=== PATIENT | female | born 2000 | race Caucasian/White ===

== ENCOUNTER 2020-06-19 12:24 | Emergency (ER) | payer SELFPAY ==
[2020-06-19 12:25] VITALS: BP 129/79; PULSE 64; RESP 16; O2SAT 97
[2020-06-19 12:26] VITALS: BP 133/77; PULSE 72; RESP 14; TEMP 35.9; O2SAT 99; BMI 36.6
--- NOTE | 2020-06-19 13:52 | EKG12_ITS ---
Test Reason : Blood Pressure : / mmHG Vent. Rate : 058 BPM Atrial Rate : 058 BPM P-R Int : 126 ms QRS Dur : 082 ms QT Int : 404 ms P-R-T Axes : -09 032 022 degrees QTc Int : 396 ms Sinus bradycardia with sinus arrhythmia Otherwise normal ECG Confirmed by ALEKSANDER ELIZONDO, GEOFFREY ([id number]), news assignment editor BRIONNA MARTÍNEZ ([id number]) on 06/22/2020 12:58:03 PM Referred By: ABIOLA/NAHOMY Confirmed By:GEOFFREY ARMIJO MD
[2020-06-19 14:35] VITALS: BP 132/69; BP 143/74; PULSE 62; PULSE 69
[2020-06-19 14:35] LABS: Absolute Lymphocyte Count 3.57 X10^3/uL (0.83-4.51); Absolute Neutrophil Count 5.8 X10^3/uL (2.0-7.7); Basophil# 0.06 X10^3/uL; Basophil% 0.6 % (0-1); Eosinophil# 0.18 X10^3/uL; Eosinophils% 1.8 % (0-5); Hematocrit 44.3 % (37-47); Hemoglobin 14.3 g/dL (12.0-15.0); Lymphocyte # 3.57 X10^3/ul (0.83-4.51); Lymphocyte % 34.9 % (19-41); Mean Corp Hgb Conc 32.3 g/dL (32-36); Mean Corpuscular Hgb 29.7 pg (27.0-32.0); Mean Corpuscular Volume 91.9 fL (81-99); Monocyte# 0.61 X10^3/uL; NRBC Flagged by Analyzer 0 % (0-5); Neutrophil # 5.79 X10^3/uL (2.7-7.7); Neutrophil % 56.4 % (47-70); Platelet Count 345 K/mm3 (150-450); RBC Distribution Width CV 11.9 % (11.6-14.6); RBC Distribution Width SD 40.1 fl (35.1-43.9); Red Blood Count 4.82 M/mm3 (4.2-5.4); White Blood Count 10.2 K/mm3 (4.4-11.0)
[2020-06-19 14:48] LABS: Mucous, Urine 0 SEEN /hpf (<or=2+); Red Blood Cells-Urine 0 SEEN /hpf (0-5); Squamous Epithelial Cells - UA 0 SEEN /hpf (5-10); White Blood Cells 0 SEEN /hpf (0-5)
[2020-06-19 14:50] VITALS: BP 137/87; PULSE 79; RESP 16; O2SAT 97
[2020-06-19 14:50] LABS: Color, Urine Yellow (Yellow); Glucose, Dipstick Normal (Normal); Ketone-Dipstick Negative (Negative); Leukocyte Esterase-Dipstick Negative /ul (Negative); Nitrite-Dipstick Negative (Negative); Occult Blood-Urine 10 /ul (Negative); Protein-Dipstick Negative (Negative); Urine Bilirubin Dipstick Negative (Negative); Urine Clarity Sl. Cloudy (Clear); Urine Urobilinogen Normal (Normal); Urine pH 6.5 (5.0 - 8.0)
[2020-06-19 14:54] LABS: Anion Gap 5 (5-15); BUN 14 mg/dL (7-18); Calcium,Total 9.3 mg/dL (8.5-10.1); Chloride 106 mmol/L (98-107); EST Glomerular Filtration Rate 112 mL/min (>60); Est Glom Filt Rate - Afr Amer 136 mL/min (>60); Estimated Creatinine Clearance 101.39 ml/min; Glucose 84 mg/dL (74-106); Potassium 4.1 mmol/L (3.5-5.1); Sodium Level 140 mmol/L (136-145)
[2020-06-19 14:55] LABS: Bacteria RARE /hpf (None Seen)
[2020-06-19 15:01] LABS: Internal QC Validated? YES +Cl - CLEAR BKGD; Pregnancy, Urine Negative Negative
[2020-06-19 16:11] VITALS: BP 119/72; PULSE 74; RESP 16; O2SAT 100
--- NOTE | 2020-06-19 16:13 | EX.ED.DYSGE1 ---
HPI History of Present Illness Chief Complaint: Hypotension Informant: patient and parent Narrative Narrative: Patient is a 19-year-old female denies any past medical history presenting with dizzy spells and lightheadedness. Patient states she has been having episodes of this for years but is been worse for the past week. Patient states that sometimes it can happen at rest and sometimes with movement. It can last anywhere between minutes and hours. Yesterday her symptoms felt better but then they seem worse again today so she came to the emergency room to be evaluated. She states she feels weak and everything feels heavy but she also feels weightless. She notes has had trouble concentrating. She denies any ringing of her ears. She denies any spinning sensation. She does have some mild fullness in her ears and seasonal allergies. Patient states she is previously been evaluated extensively but it was as a young teenager and has not seen a doctor in some time. She is planning to follow-up at the same office her father goes to. No other complaints at this time. PFSH PFS Medical History Non-smoker no medical history Home Medications No Known/Unobtainable [No Known Home Medications] 04/18/13 [History Last Taken Unknown] Allergy/AdvReac Type Severity Reaction Status Date / Time No Known Allergies Allergy Verified 06/19/20 12:26 no significant family history no surgical history Social History Smoking Status: Never smoker [facility] ED Constitutional Constitutional ED: Reports other Details: Lightheaded ; Denies chills, fever(s) or malaise Eyes Eyes: Denies blurry vision, change in vision, diplopia or loss of vision ENT ENT ED: Denies ear pain, rhinorrhea or sore throat Cardiovascular Cardiovascular: Denies chest pain or dizziness Respiratory/Chest Respiratory/Chest: Denies cough or dyspnea Gastrointestinal Gastrointestinal: Denies nausea or vomiting Genitourinary Genitourinary ED: Denies dysuria or hematuria Musculoskeletal Musculoskeletal: Denies arthralgias or myalgias Integumentary Denies rash or wounds Neurologic Neurologic: Denies focal weakness or headache(s) Psychiatric Psychiatric: Denies anxiety or behavioral changes EXAM Physical Exam Const Vital Signs: 06/19/20 12:25 06/19/20 12:26 06/19/20 13:15 Temperature 96.6 F L Temperature Source Oral Pulse Rate 64 72 Pulse Rate [Lying] Pulse Rate [Sitting] Respiratory Rate 16 14 Respiratory Pattern Normal Blood Pressure 129/79 H 133/77 H Blood Pressure [Lying] Blood Pressure [Sitting] Blood Pressure Mean 95 95 Blood Pressure Mean [Lying] Blood Pressure Mean [Sitting] Pulse Ox 97 99 Oxygen Delivery Method Room Air Room Air 06/19/20 14:35 06/19/20 14:50 06/19/20 16:11 Temperature Temperature Source Pulse Rate 79 74 Pulse Rate [Lying] 62 Pulse Rate [Sitting] 69 Respiratory Rate 16 16 Respiratory Pattern Blood Pressure 137/87 H 119/72 Blood Pressure [Lying] 143/74 H Blood Pressure [Sitting] 132/69 H Blood Pressure Mean 103 87 Blood Pressure Mean [Lying] 97 Blood Pressure Mean [Sitting] 90 Pulse Ox 97 100 Oxygen Delivery Method Room Air Room Air Positive well nourished, well developed and no apparent distress General Appearance ED: well developed HEENT Reports normocephalic, TM's clear and moist mucous membranes HEENT Narrative: Small amount of fluid noted behind the left hepatic membrane, boggy nasal mucosa atraumatic Nose: no nasal discharge General Ear: hearing grossly impaired External Ear: external ears normal Tympanic Membrane ED: Yes TM's clear Mouth ED: Yes moist mucous membranes abnormal Mouth: moist mucous membranes abnormal Eyes PERRL and EOMs intact bilaterally Neck full ROM, supple, no meningeal signs and no JVD Chest Wall inspection of chest normal Resp normal respiratory effort, normal air movement and clear to auscultation bilaterally Cardio regular rate and regular rhythm GI normal to inspection, nondistended, normoactive bowel sounds Extremity normal to inspection and full ROM Neuro oriented x3 and no focal motor deficits Sensorium / Orientation: alert Psych mental status grossly normal and thought process normal Skin no rashes or lesions noted and no wounds MDM MDM MDM Narrative Medical decision making narrative: Patient evaluated for ongoing episodes of dizziness/lightheadedness. She appears nontoxic in no acute distress. She was concerned that she had low blood pressure at home. Her diastolic was as in the 50s which concerned her. Patient currently has normal blood pressure. Orthostatics normal. She does not have a low diastolic blood pressure. She is well-appearing. She is low risk for PE and is PE RC negative. I do not think a D-dimer or further CTAs indicated. EKG is normal. Troponin is normal. Patient not having electrolyte abnormalities or signs of infection or anemia to explain her presentation. Patient does have some physical exam findings consistent with some seasonal allergies. She notes she does have some. She is instructed to start taking a daily Zyrtec as this might help with some of her lightheadedness. She is instructed to follow-up with her primary care doctor for further evaluation and possibly Holter monitor. Patient is counseled on signs and symptoms requiring return to the emergency room. Patient verbalizes agreement and understand this plan. Patient discharged home in stable and improved condition. Lab Data Attestation: I reviewed the patient's lab results. Labs: Laboratory Results - last 24 hr 06/19/20 06/19/20 06/19/20 13:34 14:34 14:40 WBC 10.2 RBC 4.82 Hgb 14.3 Hct 44.3 MCV 91.9 MCH 29.7 MCHC 32.3 RDW Std Deviation 40.1 RDW Coeff of [place] 11.9 Plt Count 345 MPV 11.0 Immature Gran % (Auto) 0.300 Neut % (Auto) 56.4 Lymph % (Auto) 34.9 [place] % (Auto) 6.0 Eos % (Auto) 1.8 Baso % (Auto) 0.6 Absolute Neuts (auto) 5.8 Absolute Lymphs (auto) 3.57 Nucleated RBC % 0 Sodium 140 Potassium 4.1 Chloride 106 Carbon Dioxide 29.0 Anion Gap 5 BUN 14 Creatinine 0.70 Estim Creat Clear Calc 101.39 Est GFR (MDRD) Af Amer 136 Est GFR (MDRD) Non-Af 112 BUN/Creatinine Ratio 20.0 Glucose 84 Calcium 9.3 Troponin I < 0.015 Urine Color Yellow Urine Clarity Sl. Cloudy Urine pH 6.5 Ur Specific [place] 1.020 Urine Protein Negative Urine Glucose (UA) Normal Urine Ketones Negative Urine Occult Blood 10 H Urine Nitrite Negative Urine Bilirubin Negative Urine Urobilinogen Normal Ur Leukocyte Esterase Negative Urine RBC 0 SEEN Urine WBC 0 SEEN Ur Squamous Epith Cells 0 SEEN Urine Bacteria RARE Urine Mucus 0 SEEN Urine Test 06/19/20 14:45 WBC RBC Hgb Hct MCV MCH MCHC RDW Std Deviation RDW Coeff of [place] Plt Count MPV Immature Gran % (Auto) Neut % (Auto) Lymph % (Auto) [place] % (Auto) Eos % (Auto) Baso % (Auto) Absolute Neuts (auto) Absolute Lymphs (auto) Nucleated RBC % Sodium Potassium Chloride Carbon Dioxide Anion Gap BUN Creatinine Estim Creat Clear Calc Est GFR (MDRD) Af Amer Est GFR (MDRD) Non-Af BUN/Creatinine Ratio Glucose Calcium Troponin I Urine Color Urine Clarity Urine pH Ur Specific [place] Urine Protein Urine Glucose (UA) Urine Ketones Urine Occult Blood Urine Nitrite Urine Bilirubin Urine Urobilinogen Ur Leukocyte Esterase Urine RBC Urine WBC Ur Squamous Epith Cells Urine Bacteria Urine Mucus Urine Test Negative Rhythm Strip Rhythm Strip: Sinus Rhythm Rate: 58 Ectopy: None EKG Initial EKG: Attestation: I personally reviewed and interpreted this EKG as follows: Interpretation: Sinus Rhythm Comments: Normal sinus rhythm at a rate of 58 Normal axis Normal intervals Normal ST segments Discharge Plan Triage Chief Complaint: Hypotension ED Provider: Julia Childs Dx/Rx/DC Orders Clinical Impression: Light-headed Instructions: ED Weakness (Uncertain Cause) Prescriptions: No Action No Known Home Medications RF: 0 Primary Care Provider: Amelie Huffman Referrals: Amelie Huffman MD [Primary Care Provider] - Activity Restrictions/Additional Instructions: Your work-up is normal today. Please follow-up with your primary care doctor. You may try taking a daily Zyrtec to see if it helps with your symptoms. Disposition Disposition: Home, self care
== END 2020-06-19 16:44 | disposition home or self-care (01) ==
PROVIDERS: Emergency Provider Emergency Medicine; PCP Obstetrics & Gynecology
DX: R42 Dizziness and giddiness (principal)
CPT/HCPCS: 80048; 81001; 81025; 84484; 85025; 93005; 99285; A4216

== ENCOUNTER → 2022-01-27 | Outpatient (CLI) | payer OTHER, SELFPAY ==
--- NOTE | 2022-01-27 18:27 | US_ITS ---
STUDY: ULTRASOUND OF THE FEMALE PELVIS - COMPLETE REASON FOR EXAM: Female, 21 years old. LLQ PAIN LMP: Unknown. TECHNIQUE: Transabdominal TECHNICAL QUALITY: Adequate. COMPARISON: None. FINDINGS: The uterus is anteverted and is in a midline position. The uterus measures 6.1 x 5.1 x 4.3 cm. Normal uterine cervix. The endometrium measures 10 mm in thickness, and is hyperechoic with split appearance. There is no demonstrated endometrial mass. There is no demonstrated myometrial mass. I.U.D. - The patient does not have an I.U.D. The right ovary is non-visualized. The left ovary is visualized. The left ovary measures 3.8 x 3.2 x 3.0 cm. There is no left ovarian cyst or ovarian mass. There is no visualized left adnexal mass or complex lesion. There is normal arterial and normal venous vascularity. There is no fluid in the cul-de-sac. The pre void volume of the bladder was 5 ml. US/Pelvic (Non ) IMPRESSION: Normal left ovary. Nonvisualized right ovary. Spondylitic of the endometrium and possible arcuate or septate uterus. Electronically Signed: Teddy Juan MD at 19:58 EST ,
== END | disposition home or self-care (01) ==
LOC: US 18:24
PROVIDERS: Referring Provider Family Medicine; Visit Provider Family Medicine
DX: R10.32 Left lower quadrant pain (principal); M47.9 Spondylosis, unspecified
CPT/HCPCS: 76856; 93976

== ENCOUNTER → 2023-08-22 | Outpatient (CLI) | payer OTHER, SELFPAY ==
[2023-08-22 12:47] LABS: Absolute Lymphocyte Count 2.55 X10^3/uL (0.83-4.51); Absolute Neutrophil Count 4.1 X10^3/uL (2.0-7.7); Basophil# 0.02 X10^3/uL; Basophil% 0.3 % (0-1); Eosinophil# 0.09 X10^3/uL; Eosinophils% 1.3 % (0-5); Hemoglobin 14.1 g/dL (12.0-15.0); Lymphocyte # 2.55 X10^3/ul (0.83-4.51); Lymphocyte % 35.5 % (19-41); Mean Corpuscular Hgb 28.8 pg (27.0-32.0); Mean Platelet Vol. 11.1 fl (6.2-12.0); Monocyte# 0.38 X10^3/uL; Monocyte% 5.3 % (0-10); NRBC Flagged by Analyzer 0 % (0-5); Neutrophil # 4.12 X10^3/uL (2.7-7.7); Neutrophil % 57.3 % (47-70); Platelet Count 343 K/mm3 (150-450); RBC Distribution Width CV 12.6 % (11.6-14.6); RBC Distribution Width SD 41.6 fl (35.1-43.9); Red Blood Count 4.89 M/mm3 (4.2-5.4); White Blood Count 7.2 K/mm3 (4.4-11.0)
[2023-08-22 15:58] LABS: ALB/GLOB Ratio 1.1 RATIO (0.9-2.4); AST(SGOT) 11 U/L (15-37); Alanine Aminotransfer ALT/SGPT 34 U/L (13-56); Albumin, Serum 3.7 g/dL (3.2-5.0); Alkaline Phosphatase 43 U/L (45-117); Anion Gap 5 (5-15); BUN 14 mg/dL (7-18); BUN/Creat Ratio 24.5 RATIO (10-20); Calcium,Total 9.3 mg/dL (8.5-10.1); Chloride 109 mmol/L (98-107); Cholesterol 175 mg/dL (200); Creatinine, Serum 0.57 mg/dL (0.55-1.02); EST Glomerular Filtration Rate 138 mL/min (>60); Est Glom Filt Rate - Afr Amer 167 mL/min (>60); Globulin 3.5 g/dL (2.2-4.2); Glucose 85 mg/dL (74-106); High Density Lipoprotein 41 mg/dL; Potassium 4.2 mmol/L (3.5-5.1); Protein, Total 7.2 g/dL (6.4-8.2); Sodium Level 137 mmol/L (136-145); Triglycerides 100 mg/dL; Very Low Density Lipoprotein 20 mg/dL (5-40)
== END | disposition home or self-care (01) ==
LOC: MTLAB 11:04
PROVIDERS: PCP Nurse Practitioner Family; Referring Provider Nurse Practitioner Family; Visit Provider Nurse Practitioner Family
DX: Z00.01 Encounter for general adult medical examination with abnormal findings (principal); G43.809 Other migraine, not intractable, without status migrainosus
CPT/HCPCS: 36415; 80053; 80061; 85025